=== PATIENT | male | born 1970 | race Caucasian/White ===

== ENCOUNTER 2017-04-30 08:42 | Day surgery (SDC) | payer MEDICARE, SELFPAY ==
[~2017-04-30 08:42] MED LIST: Midazolam 1 MG/ML 2 ML SDV ONE; Propofol 200 MG/20 ML SDV ONE; fentaNYL 100 MCG/2 ML SDV ONE
[2017-04-30] MEDS ORDERED: Sodium Chloride 0.9% 1,000 ML IV SCH (09:15)
[2017-04-30 10:53] VITALS: BP 139/97
--- NOTE | 2017-05-01 11:36 | OR ---
DATE OF PROCEDURE: 04/30/2017 PROCEDURE PERFORMED: Esophagogastroduodenoscopy. FINDINGS: 1. Significant reflux at the gastroesophageal junction. 2. No other gross abnormalities. COMPLICATIONS: None. 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 ANESTHESIA: MAC. RISKS: Risks, benefits, alternatives, and limitations including, but not limited to infection, bleeding, and perforation were explained to the patient, and they wished to proceed. PROCEDURE IN DETAIL: The patient was placed in left lateral decubitus position. The EGD scope was introduced and advanced atraumatically to the 2nd part of the duodenum. The scope was brought back into the stomach and retroflexed. No hiatal hernia was noted. No gastritis or no ulceration. The GE junction with inflammation consistent with reflux disease, was biopsied in four quadrants X6. No other abnormalities were noted in the esophagus. The patient tolerated procedure well. Narayan Bowman MD /[id number]
== END 2017-04-30 10:54 | disposition home or self-care (01) ==
LOC: JP.SDS 08:42
PROVIDERS: ATTEND Surgery
DX: K21.0 Gastro-esophageal reflux disease with esophagitis (principal); K29.00 Acute gastritis without bleeding
CPT/HCPCS: 43239; J2250; J2704; J3010; J7040; 88305

== ENCOUNTER 2021-11-28 15:16 | Inpatient (IN) | payer MEDICARE ==
[2021-11-28] MEDS ORDERED: HYDROmorphone 0.5 MG/0.5 ML Syringe IVPUSH ONE (18:14)
[2021-11-28] MEDS ORDERED: Iopamidol 755 Mg/ML 100 ML Bottle IV SCH (18:30)
[2021-11-28] MEDS ORDERED: Sodium Chloride 0.9% 75 ML IV SCH (18:30)
[2021-11-28] MEDS ORDERED: Vancomycin 2 GM in Sodium Chloride 0.9% 500 ML IV ONE (19:27)
[2021-11-28] MEDS: Sodium Chloride 0.9% 1,000 ML IV SCH (21:10)
[2021-11-28] MEDS ORDERED: Vancomycin 1 GM SDV IV SCH (22:00)
[2021-11-28] MEDS: Meropenem 1 GM in Sodium Chloride 0.9% 100 ML IV SCH (22:44)
[2021-11-28] MEDS: HYDROmorphone 1 MG/ML Syringe IVPUSH PRN (22:44)
[2021-11-28] MEDS ORDERED: Ondansetron 4 MG Tab.DIS PO PRN (23:03)
[2021-11-28] MEDS ORDERED: Docusate Sodium 100 MG Cap PO PRN (23:03)
[2021-11-28] MEDS ORDERED: oxyCODONE 5 MG Tab PO PRN (23:03)
[2021-11-28] MEDS ORDERED: Albuterol 0.083% 2.5 MG/3 ML Neb Soln NEB PRN (23:03)
[2021-11-28] MEDS ORDERED: Albuterol/Ipratropium 3.0-0.5 MG/3 ML Neb Soln NEB PRN (23:03)
[2021-11-28] MEDS ORDERED: Bisacodyl 5 MG Tab PO PRN (23:03)
[2021-11-28] MEDS ORDERED: Temazepam 15 MG Cap PO PRN (23:03)
[2021-11-28] MEDS ORDERED: LORazepam 2 MG/ML SDV IV PRN (23:03)
[2021-11-28] MEDS ORDERED: Nicotine 14 MG/24 Hr Patch TRDERM PRN (23:03)
[2021-11-29] MEDS: HYDROmorphone 1 MG/ML Syringe IVPUSH PRN ×4 (01:24→12:12)
[2021-11-29 02:24] LABS: CORONAVIRUS COVID-19 NAA NEGATIVE (NEGATIVE)
[2021-11-29] MEDS: Meropenem 1 GM in Sodium Chloride 0.9% 100 ML IV SCH ×3 (05:27→22:10)
[2021-11-29] MEDS: Sodium Chloride 0.9% 1,000 ML IV SCH (07:32)
[2021-11-29] MEDS ORDERED: Furosemide 20 MG/2 ML VIAL IVPUSH ONE ×2 (08:00→17:42)
[2021-11-29] MEDS: Pantoprazole 40 MG Tab.CR PO SCH ×2 (08:20→15:57)
[2021-11-29] MEDS ORDERED: amLODIPine 5 MG Tab PO SCH (09:00)
[2021-11-29] MEDS: Potassium Chloride 20 MEQ, Lidocaine 1% 2 ML in Sodium Chloride 0.9% 100 ML IV SCH ×2 (10:24→12:53)
[2021-11-29] MEDS ORDERED: Sodium Chloride 0.9% 10 ML Syringe FLUSH PRN (11:32)
[2021-11-29] MEDS ORDERED: Sodium Chloride 0.9% 100 ML IV SCH (11:45)
[2021-11-29] MEDS ORDERED: Iopamidol 755 Mg/ML 100 ML Bottle IV SCH (11:45)
[2021-11-29] MEDS: Enoxaparin 40 MG/0.4 ML Syringe SUBCUT SCH (18:10)
[2021-11-29] MEDS: oxyCODONE 5 MG Tab PO PRN ×2 (18:18→22:45)
[2021-11-29] MEDS: Acetaminophen 325 MG Tab PO PRN (22:12)
[2021-11-30] MEDS: oxyCODONE 5 MG Tab PO PRN (04:30)
[2021-11-30] MEDS: Meropenem 1 GM in Sodium Chloride 0.9% 100 ML IV SCH ×3 (05:57→22:42)
[2021-11-30] MEDS: Pantoprazole 40 MG Tab.CR PO SCH ×2 (07:21→17:13)
[2021-11-30] MEDS: Acetaminophen 325 MG Tab PO PRN ×2 (07:44→17:29)
[2021-11-30] MEDS ORDERED: Potassium Chloride 20 MEQ Tab.ER PO ONE ×2 (07:49→17:00)
[2021-11-30] MEDS ORDERED: Furosemide 20 MG/2 ML VIAL IVPUSH ONE ×2 (08:00→18:00)
[2021-11-30] MEDS: Enoxaparin 40 MG/0.4 ML Syringe SUBCUT SCH (09:48)
[2021-11-30] MEDS ORDERED: Furosemide 40 MG/4 ML VIAL IVPUSH ONE (18:00)
[2021-11-30] MEDS: Melatonin 3 MG Tab PO SCH (20:52)
[2021-12-01] MEDS: Meropenem 1 GM in Sodium Chloride 0.9% 100 ML IV SCH (05:47)
[2021-12-01] MEDS ORDERED: Furosemide 20 MG/2 ML VIAL IVPUSH ONE ×2 (08:00→18:00)
[2021-12-01] MEDS ORDERED: Furosemide 40 MG/4 ML VIAL IVPUSH ONE (08:00)
[2021-12-01] MEDS: Pantoprazole 40 MG Tab.CR PO SCH ×2 (08:00→16:34)
[2021-12-01] MEDS: Enoxaparin 40 MG/0.4 ML Syringe SUBCUT SCH (08:00)
[2021-12-01] MEDS: Melatonin 3 MG Tab PO SCH (21:12)
[2021-12-02] MEDS ORDERED: Furosemide 40 MG/4 ML VIAL IVPUSH ONE (08:00)
[2021-12-02] MEDS ORDERED: Furosemide 20 MG/2 ML VIAL IVPUSH ONE (08:00)
[2021-12-02 08:05] VITALS: BP 109/68; PULSE 76
[2021-12-02] MEDS: Enoxaparin 40 MG/0.4 ML Syringe SUBCUT SCH (08:06)
[2021-12-02] MEDS: Pantoprazole 40 MG Tab.CR PO SCH (08:06)
== END 2021-12-02 10:57 | disposition home or self-care (01) | DRG 923 ==
LOC: JP.ED 15:16 → JP.2SS 19:35
PROVIDERS: ADMIT Hospitalist; ATTEND Internal Medicine
DX: L03.115 Cellulitis of right lower limb (principal); M60.003 Infective myositis, unspecified right leg; T79.A21A Traumatic compartment syndrome of right lower extremity, initial encounter; M79.81 Nontraumatic hematoma of soft tissue; Z87.820 Personal history of traumatic brain injury; F10.20 Alcohol dependence, uncomplicated; I87.2 Venous insufficiency (chronic) (peripheral); E10.8 Type 1 diabetes mellitus with unspecified complications; Z79.899 Other long term (current) drug therapy; F10.10 Alcohol abuse, uncomplicated; Y90.9 Presence of alcohol in blood, level not specified; H91.90 Unspecified hearing loss, unspecified ear; H54.7 Unspecified visual loss; I10 Essential (primary) hypertension; K21.9 Gastro-esophageal reflux disease without esophagitis; E10.9 Type 1 diabetes mellitus without complications; Z86.19 Personal history of other infectious and parasitic diseases; F17.210 Nicotine dependence, cigarettes, uncomplicated; X58.XXXA Exposure to other specified factors, initial encounter; Z20.822 Contact with and (suspected) exposure to COVID-19
CPT/HCPCS: 0241U; 36415; 72193; 73701-50; 75635; 75635-26; 80048; 80053; 80202; 82550; 83735; 85025; 85379; 85610; 85730; 86140; 87040; 93926-26; 93926-RT; 93971-26; 93971-RT; 96374; 99222; 99232; 99239; 99283; 99284-25; A9270-GY; J1170; J1650; J1940; J2060; J2185; J3370; J3480; J3490; J7030; J7040; J7050; Q9967

== ENCOUNTER 2025-01-28 08:13 | Emergency (ER) | payer MEDICARE ==
[2025-01-28] MEDS ORDERED: Naloxone 0.4 MG/ML SDV IVPUSH PRN (08:23)
[2025-01-28 08:30] LABS: BASOPHILS ABSOLUTE AUTO 0.03 K/uL (0.00-0.10); BASOPHILS PERCENT AUTO 0.3 % (0.1-1.3); EOSINOPHILS PERCENT AUTO 0.2 % (0.0-5.4); IMMATURE GRAN ABSOLUTE AUTO 0.09 K/uL (0.00-0.23); LYMPHOCYTES ABSOLUTE AUTO 0.78 K/uL (0.8-3.3); LYMPHOCYTES PERCENT AUTO 8.8 % (11.4-47.7); MEAN CORPUSCULAR HEMOGLOBIN 35.3 pg (31.6-35.5); MEAN CORPUSCULAR HGB CONC 35.1 g/dL (31.6-35.5); MEAN CORPUSCULAR VOLUME 100.5 fL (81.4-99.0); MONOCYTES ABSOLUTE AUTO 0.78 K/uL (0.20-0.90); MONOCYTES PERCENT AUTO 8.8 % (3.3-12.6); NEUTROPHILS ABSOLUTE AUTO 7.21 K/uL (1.0-7.6); NEUTROPHILS PERCENT AUTO 80.9 % (40.0-78.1); PLATELET COUNT,PLT 100 K/uL (130-375); RED BLOOD CELL COUNT 5.47 M/uL (4.14-5.76); WHITE BLOOD CELL COUNT,WBC 8.9 K/uL (3.2-11.0)
[2025-01-28] MEDS: HYDROmorphone 0.5 MG/0.5 ML Syringe IVPUSH PRN (08:36)
[2025-01-28 08:38] LABS: EOSINOPHILS ABSOLUTE AUTO 0.02 K/uL (0.00-0.40); HEMOGLOBIN 19.3 g/dL (12.9-16.9)
[2025-01-28 08:42] LABS: INR 1.2; PROTHROMBIN TIME 12.1 sec (9.2-10.6)
[2025-01-28 08:46] LABS: A/G RATIO 0.7 (1.2-2.2); ALANINE AMINOTRANSFERASE,ALT 26 U/L (12-78); ALKALINE PHOSPHATASE 138 U/L (46-116); ASPARTATE AMNIOTRANSFERASE,AST 36 U/L (15-37); BILIRUBIN TOTAL 2.6 mg/dL (0.2-1.0); BLOOD UREA NITROGEN,BUN 6 mg/dL (7-18); CALCIUM 9.2 mg/dL (8.5-10.1); CARBON DIOXIDE,CO2 27 mmol/L (21-32); CHLORIDE,CL 97 mmol/L (100-108); CREATININE 0.9 mg/dL (0.8-1.3); EST CRCL DRUG DOSING (CG) 94.39 mL/min; ESTIMATED GFR 102 mL/min (>60); GLUCOSE RANDOM 127 mg/dL (74-106); MAGNESIUM 1.6 mg/dL (1.8-2.4); POTASSIUM,K 3.5 mmol/L (3.6-5.2); PROTEIN TOTAL,TP 7.2 g/dL (6.4-8.2); SODIUM,NA 136 mmol/L (140-148)
[2025-01-28 08:47] LABS: ANION GAP 15.5 mmol/L (5.0-14.0)
[2025-01-28 09:28] LABS: APPEARANCE,URINE CLEAR (CLEAR); BILIRUBIN,URINE SMALL (NEGATIVE); COLOR,URINE YELLOW (YELLOW); GLUCOSE,URINE NEGATIVE (NEGATIVE); KETONES,URINE 40 mg/dL (NEGATIVE); LEUKOCYTE ESTERASE,URINE NEGATIVE (NEGATIVE); NITRITE,URINE POSITIVE (NEGATIVE); OCCULT BLOOD,URINE TRACE-INTACT (NEGATIVE); PH,URINE 6.5 (5.0-8.0); PROTEIN,URINE 30 mg/dL (NEGATIVE)
[2025-01-28 09:30] LABS: AMPHETAMINES SCREEN, URINE NEGATIVE (NEGATIVE); BARBITURATE SCREEN,URINE NEGATIVE (NEGATIVE); BENZODIAZEPINES SCREEN,URINE NEGATIVE (NEGATIVE); METHADONE SCREEN, URINE NEGATIVE (NEGATIVE); METHAMPHETAMINES SCREEN, URINE NEGATIVE (NEGATIVE); OXYCODONE SCREEN,URINE NEGATIVE (NEGATIVE); PROPOXYPHENE SCREEN,URINE NEGATIVE (NEGATIVE); THC SCREEN,URINE 50 NG/ML NEGATIVE (NEGATIVE)
[2025-01-28 09:36] LABS: BACTERIA,URINE NOT SEEN; EPITHELIAL CELLS,URINE RARE; RBC,URINE 0-5 (0-5); WBC,URINE NOT SEEN (0-5)
[2025-01-28 09:37] LABS: MUCUS,URINE OCCASIONAL
[2025-01-28] MEDS: Sodium Chloride 0.9% 80 ML IV SCH (10:33)
[2025-01-28] MEDS: Sodium Chloride 0.9% 10 ML SDV FLUSH ONE (10:33)
[2025-01-28] MEDS: Iopamidol 612 MG/ML 100 ML Bottle IV PRN (10:34)
[2025-01-28] MEDS: Cyclobenzaprine 10 MG Tab PO ONE (11:14)
[2025-01-28 17:21] VITALS: BP 165/94; PULSE 96
== END 2025-01-28 16:33 ==
LOC: JP.ED 08:13
DX: S32.10XA Unspecified fracture of sacrum, initial encounter for closed fracture (principal); I10 Essential (primary) hypertension; W19.XXXA Unspecified fall, initial encounter
CPT/HCPCS: 36415; 70450; 71260; 72125; 72128; 72131; 72170; 74177; 76377; 80053; 80305; 80307; 81001; 83605; 83735; 85025; 85610; 96374; 96376; 99285; A9270; Q9967

== ENCOUNTER 2025-03-16 07:53 | Day surgery (SDC) | payer MEDICARE ==
[2025-03-16] MEDS: Lactated Ringers 1,000 ML IV SCH (09:03)
[2025-03-16] MEDS ORDERED: Propofol 200 MG/20 ML SDV ONE (10:00)
[2025-03-16] MEDS ORDERED: fentaNYL 100 MCG/2 ML SDV ONE (10:00)
[2025-03-16] MEDS ORDERED: Midazolam 1 MG/ML 2 ML SDV ONE (10:00)
[2025-03-16 11:44] VITALS: BP 149/91; PULSE 61
== END 2025-03-16 11:48 | disposition home or self-care (01) ==
LOC: JP.SDS 07:53
PROVIDERS: ATTEND Surgery
DX: K25.9 Gastric ulcer, unspecified as acute or chronic, without hemorrhage or perforation (principal); K44.9 Diaphragmatic hernia without obstruction or gangrene; K21.9 Gastro-esophageal reflux disease without esophagitis
CPT/HCPCS: 00731; 43239; J2250; J2704; J3010; J7120